=== PATIENT | female | born 2000 | race Caucasian/White ===

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

== ENCOUNTER 2018-09-04 21:29 | Emergency (ER) | payer OTHER ==
[2018-09-04] MEDS ORDERED: SODIUM CHLORIDE 1,000 ML IV STA (22:07)
--- NOTE | 2018-09-04 22:27 | PDOC ---
History of Present Illness - General Stated Complaint: UNCONSCIOUS Time Seen by Provider: 09/04/18 22:02 - History of Present Illness Initial Comments: 09/04/18 22:21 18 yo F with h/o Sandrine-en-Y, choleyctsectomy who p/w abdominal pain, vomiting, presyncope. Patient reports acute onset of 2-3 episodes of non bilious, non bloody emesis beginning this evening after leaving restaurant. Patient reports transient episode of lightheadedness, prior to arrival, while vomiting outside. + intermittent, RLQ sharp, abdominal beginning this evening. at bedside reports patient controlled herself to ground, with absent LOC, or head trauma following episode of emesis. This occurred twice. EMS reports patient noted to be hypotensive 74/40, tachycardic and hypoglycemic (undetectable BS) in route. Patient received Nml bowel habits, and in typical state of health today. Patient denies Palpitations, leg pain/swelling, Cough, wheezing, neck pain, STARK, F,C, CP, SOB, urinary complaints, BPR, hematuria, diarrhea, constipation, weakness, sensory changes. PMHx: as noted above ROS: as noted SHx: Denies IVDA. Allergies: NKDA Past History - Past Medical History Allergies/Adverse Reactions: Allergies Allergy/AdvReac Type Severity Reaction Status Date / Time No Known Allergies Allergy Verified 09/04/18 22:33 Home Medications: Ambulatory Orders Calcium Carbonate/Simethicone [Maalox Advanced Tab Chew] 1 each PO DAILY PRN #7 tab.chew 09/05/18 Famotidine [Pepcid -] 20 mg PO BID #14 tablet 09/05/18 Ondansetron [Zofran -] 4 mg PO BID #14 tablet 09/05/18 COPD: No DVT: No Dementia: No - Surgical History Abdominal Surgery: Yes (gastric ballon) Cholecystectomy: Yes - Immunization History Immunization Up to Date: Yes - Suicide/Smoking/Psychosocial Hx Smoking History: Never smoked Have you smoked in the past 12 months: No Hx Alcohol Use: No Drug/Substance Use Hx: No Substance Use Type: None Review of Systems - Review of Systems Comments:: 09/04/18 22:27 GENERAL/CONSTITUTIONAL: No fever or chills. No weakness. HEAD, EYES, EARS, NOSE AND THROAT: No change in vision. No ear pain or discharge. No sore throat. CARDIOVASCULAR: No chest pain or shortness of breath RESPIRATORY: No cough, wheezing, or hemoptysis. GASTROINTESTINAL: + nausea, vomiting, abdominal pain. Absent diarrhea or constipation. GENITOURINARY: No dysuria, frequency, or change in urination. MUSCULOSKELETAL: No joint or muscle swelling or pain. No neck or back pain. SKIN: No rash NEUROLOGIC: No headache, vertigo, loss of consciousness, or change in strength/ sensation. ENDOCRINE: No increased thirst. No abnormal weight change HEMATOLOGIC/LYMPHATIC: No anemia, easy bleeding, or history of blood clots. ALLERGIC/IMMUNOLOGIC: No hives or skin allergy. *Physical Exam - Physical Exam Comments: 09/04/18 22:27 GENERAL: Awake, alert, and fully oriented, in no acute distress HEAD: No signs of trauma, normocephalic, atraumatic EYES: PERRLA, EOMI, sclera anicteric, conjunctiva clear ENT: Auricles normal inspection, hearing grossly normal, nares patent, oropharynx clear without exudates. Moist mucosa NECK: Normal ROM, supple, no lymphadenopathy, JVD, or masses LUNGS: No distress, speaks full sentences, clear to auscultation bilaterally HEART: Regular rate and rhythm, normal S1 and S2, no murmurs, rubs or gallops, peripheral pulses normal and equal bilaterally. ABDOMEN: Soft, nontender, normoactive bowel sounds. No guarding, no rebound. No masses EXTREMITIES : Normal inspection, Normal range of motion, no edema. No clubbing or cyanosis. NEUROLOGICAL: Cranial nerves II through XII grossly intact. Normal speech, normal gait, no focal sensorimotor deficits SKIN: Warm, Dry, normal turgor, no rashes or lesions noted ED Treatment Course - LABORATORY CBC & Chemistry Diagram: 09/04/18 22:45 09/04/18 22:45 Medical Decision Making - Medical Decision Making 09/04/18 22:27 18 yo F with h/o Sandrine-en-Y, choleyctsectomy who p/w abdominal pain, vomiting, presyncope. HR 121, BP 104/57, vitals otherwise wnl, AF, a&Ox3. Physical exam unremarkable. R/o obx. Will consider gastroenteritis. colitis, pancreatitis, biliary dz., esophagitis. Assess for cardiac dysarrythmia, hypoglycemia, electrolyte abnml, metabolic and toxic derangements, acid-base disturbances, infection. Ed Course: Pepcid, NS CBC, CMP, LIPASE, HCG CT AP PO/IV CON 09/04/18 23:39 WBC: 13.9 HCG: Neg 09/05/18 01:11 CT AP: Unremarkable Patient tolerating PO intake. abdominal pain improved Stable for d/c with return precautions. Advised to f/u with PMD. 09/05/18 01:12 09/05/18 01:30 Maloox, Pepcid, Zofran sent to pharmacy. *DC/Admit/Observation/Transfer Diagnosis at time of Disposition: Abdominal pain with vomiting - Prescriptions Prescriptions: Calcium Carbonate/Simethicone [Maalox Advanced Tab Chew] 1 each PO DAILY PRN #7 tab.chew PRN Reason: Pain Famotidine [Pepcid -] 20 mg PO BID #14 tablet Ondansetron [Zofran -] 4 mg PO BID #14 tablet - Referrals Referrals: Serena Gutierrez MD [Primary Care Provider] - - Patient Instructions Printed Discharge Instructions: DI for Syncope in Adults (Fainting) Additional Instructions: Please return to the emergency department with any new or worsening symptoms or concerns. Please follow up with your primary care physician within 72 hours. - Post Discharge Activity - Transfer to Acute Care Facility Transfer comment: 09/04/18 22:43 I attest to the information provided in this note. - Attestations Physician Attestion: 09/05/18 01:12 I attest to the information provided in this note.
[2018-09-04 22:34] VITALS: TEMP 98.6; BMI 22.3
[2018-09-04] MEDS ORDERED: FAMOTIDINE 20 MG/50 ML IVPB 20 MG/50 ML MG IVPB ONE ×2 (22:38→23:00)
[2018-09-04 23:08] LABS: BASO % 0.1 % (0-2.0); EOS % 0.3 % (0-4.5); HEMATOCRIT 34.1 % (32.4-45.2); HEMOGLOBIN 11.8 GM/dL (10.7-15.3); MCH 28.9 pg (25.7-33.7); MCHC 34.7 g/dl (32.0-36.0); MEAN CELL VOLUME 83.3 fl (80-96); MEAN PLT VOLUME 7.6 fl (7.5-11.1); NEUT % 76.6 % (42.8-82.8); PLATELET COUNT 275 K/MM3 (134-434); RDW 12.4 % (11.6-15.6); WHITE BLOOD COUNT 13.9 K/mm3 (4.0-10.0)
--- NOTE | 2018-09-04 23:10 | PDOC ---
Attending Attestation - Resident Resident Name: Naveen Mendoza - ED Attending Attestation I have performed the following: I have examined & evaluated the patient, The case was reviewed & discussed with the resident, I agree w/resident's findings & plan, Exceptions are as noted - Medical Decision Making 09/04/18 23:09 18yoF hx of gastric bypass and cholecystectomy presents w/ sudden onset of severe abd pain and vomiting during dinner tonight, abd soft w/ mild epig ttp, no guarding, no rebound. - labs - CTAP w/ IV and PO contrast - IVF, sxs control - UPT - dispo per results.
[2018-09-04 23:49] LABS: ALBUMIN 3.4 g/dl (3.4-5.0); ALK PHOS 112 U/L (45-117); ANION GAP 7 MMOL/L (8-16); BILIRUBIN,TOTAL 0.5 mg/dL (0.2-1); BLOOD UREA NITROGEN 12 mg/dL (7-18); CALCIUM 8.1 mg/dL (8.5-10.1); CHLORIDE 109 mmol/L (98-107); CO2 24 mmol/L (21-32); CREATININE 0.3 mg/dL (0.55-1.3); GLUCOSE,RANDOM 67 mg/dL (74-106); LIPASE 197 U/L (73-393); POTASSIUM 3.7 mmol/L (3.5-5.1); SGOT/AST 25 U/L (15-37); SGPT/ALT 37 U/L (13-61); SODIUM 140 mmol/L (136-145); TOT PROT 6.5 g/dl (6.4-8.2)
[2018-09-05 01:07] LABS: URINE APPEARANCE CLEAR; URINE BILIRUBIN NEGATIVE (<2.0 mg/dL); URINE COLOR LTYELLOW; URINE GLUCOSE (UA) 3+ (NEGATIVE); URINE KETONE NEGATIVE (NEGATIVE); URINE LEUK ESTERASE NEGATIVE (NEGATIVE); URINE NITRITE NEGATIVE (NEGATIVE); URINE PROTEIN NEGATIVE (NEGATIVE); URINE UROBILINOGEN NEGATIVE mg/dL (0.2-1.0)
[2018-09-05 01:33] VITALS: BP 112/67; PULSE 89
== END 2018-09-05 01:34 | disposition home or self-care (01) ==
LOC: JER 21:29
PROC: 3E033GC Introduction of Other Therapeutic Substance into Peripheral Vein, Percutaneous Approach (ICD-10-PCS; principal; 2018-09-04)
PROC: 3E0337Z Introduction of Electrolytic and Water Balance Substance into Peripheral Vein, Percutaneous Approach (ICD-10-PCS; 2018-09-04)
DX: R10.9 Unspecified abdominal pain (principal); R11.10 Vomiting, unspecified; Z98.84 Bariatric surgery status
CPT/HCPCS: 36415; 74177-TC; 80053; 81003; 82947; 83690; 84703; 85025; 87086; 99283-25; J7030

== ENCOUNTER 2019-08-05 11:22 | Emergency (ER) | payer OTHER ==
[2019-08-05 11:51] VITALS: BMI 18.9
[2019-08-05] MEDS ORDERED: SODIUM CHLORIDE 1,000 ML IV STA ×2 (12:52→18:23)
[2019-08-05] MEDS ORDERED: FAMOTIDINE 20 MG/50 ML IVPB 20 MG/50 ML MG IVPB ONE ×2 (12:52→13:35)
[2019-08-05] MEDS ORDERED: LIDOCAINE VISCOUS 2% ORAL/TOP 20 ML UNIT-DOSE CUP MM ONE ×2 (12:52→19:12)
[2019-08-05] MEDS ORDERED: ONDANSETRON 4 MG/2 ML VIAL IVPUSH ONE (12:53)
--- NOTE | 2019-08-05 12:53 | PDOC ---
History of Present Illness - General Chief Complaint: Pain, Acute Stated Complaint: ABD/PAIN Time Seen by Provider: 08/05/19 11:59 History Source: Patient Exam Limitations: No Limitations Past History - Travel Traveled outside of the country in the last 30 days: No Close contact w/someone who was outside of country & ill: No - Past Medical History Allergies/Adverse Reactions: Allergies Allergy/AdvReac Type Severity Reaction Status Date / Time No Known Allergies Allergy Verified 08/05/19 11:46 Home Medications: Ambulatory Orders Calcitriol [Rocaltrol -] 0.5 mcg PO BID 08/05/19 Calcium Carbonate - 650 mg PO TID 08/05/19 Cholecalciferol (Vitamin D3) [Vitamin D3 -] 4,000 unit PO DAILY 08/05/19 Dexlansoprazole [Dexilant] 60 mg PO ASDIR 08/05/19 Escitalopram Oxalate [Lexapro -] 5 mg PO DAILY 08/05/19 Levothyroxine Sodium [Levo-T] 75 mcg PO DAILY 08/05/19 Metoclopramide HCl 1 tab PO AC 08/05/19 Sennosides [Senna] 1 tab PO HS 08/05/19 Simethicone [Mi-Acid] 1 tab PO ASDIR 08/05/19 COPD: No DVT: No Dementia: No Psychiatric Problems: Yes (depression) Other medical history: thryroid storm 07/22 26 days admission [facility] - Surgical History Abdominal Surgery: Yes (gastric ballon) Cholecystectomy: Yes - Immunization History Immunization Up to Date: Yes - Psycho Social/Smoking Cessation Hx Smoking History: Never smoked Have you smoked in the past 12 months: No Hx Alcohol Use: No Drug/Substance Use Hx: No Substance Use Type: None Review of Systems - Review of Systems Able to Perform ROS?: Yes Comments:: 08/05/19 18:27 CONSTITUTIONAL: Absent: fever, chills, diaphoresis, generalized weakness, malaise, loss of appetite HEENT: Absent: rhinorrhea, nasal congestion, throat pain, throat swelling, difficulty swallowing, mouth swelling, ear pain, eye pain, visual Changes CARDIOVASCULAR: Absent: chest pain, loss of consciousness, palpitations, irregular heart rate, peripheral edema RESPIRATORY: Absent: cough, shortness of breath, dyspnea with exertion, orthopnea, wheezing, stridor, hemoptysis GASTROINTESTINAL: Present: Abdominal pain. Absent: abdominal distension, nausea, vomiting, diarrhea, constipation, melena, hematochezia GENITOURINARY: Absent: dysuria, frequency, urgency, hesitancy, hematuria, flank pain, genital pain MUSCULOSKELETAL: Absent: myalgia, arthralgia, joint swelling SKIN: Absent: rash, itching, pallor HEMATOLOGIC/IMMUNOLOGIC: Absent: easy bleeding, easy bruising, lymphadenopathy, frequent infections ENDOCRINE: Absent: unexplained weight gain, unexplained weight loss, heat intolerance, cold intolerance NEUROLOGIC: Absent: headache, focal weakness or paresthesias, dizziness, unsteady gait, seizure, mental status changes, bladder or bowel incontinence PSYCHIATRIC: Absent: anxiety, depression, suicidal or homicidal ideation, hallucinations. Is the patient limited Norwegian proficient: No *Physical Exam - Vital Signs Last Vital Signs Temp Pulse Resp BP Pulse Ox 98 F 105 H 20 105/67 99 08/05/19 11:49 08/05/19 11:49 08/05/19 11:49 08/05/19 11:49 08/05/19 11:49 - Physical Exam 08/05/19 18:27 GENERAL: Well developed, well nourished. Awake and alert. No acute distress. HEENT: Normocephalic, atraumatic. PERRLA, EOMI. No conjunctival pallor. Sclera are non- icteric. Moist mucous membranes. Oropharynx is clear. NECK: Supple. Full ROM. No JVD. Carotid pulses 2+ and symmetric, without bruits. No thyromegaly. No lymphadenopathy. CARDIOVASCULAR: Regular rate and rhythm. No murmurs, rubs, or gallops. Distal pulses are 2+ and symmetric. PULMONARY: No evidence of respiratory distress. Lungs clear to auscultation bilaterally. No wheezing, rales or rhonchi. ABDOMINAL: Tenderness palpation of the epigastric region. Also tenderness the left upper quadrant. Soft. Non-distended. No rebound or guarding. No organomegaly. Normoactive bowel sounds. MUSCULOSKELETAL Normal range of motion at all joints. No bony deformities or tenderness. No CVA tenderness. EXTREMITIES: No cyanosis. No clubbing. No edema. No calf tenderness. SKIN: Warm and dry. Normal capillary refill. No rashes. No jaundice. NEUROLOGICAL: Alert, awake, appropriate. Cranial nerves 2-12 intact. No deficits to light touch and temperature in face, upper extremities and lower extremities. No motor deficits in the in face, upper extremities and lower extremities. Normoreflexic in the upper and lower extremities. Normal speech. Toes are down- going bilaterally. Gait is normal without ataxia. PSYCHIATRIC: Cooperative. Good eye contact. Appropriate mood and affect. ED Treatment Course - LABORATORY CBC & Chemistry Diagram: 08/05/19 13:47 08/05/19 13:47 Medical Decision Making - Medical Decision Making 08/05/19 18:27 Patient is a 19-year-old female with past medical history of hyperthyroidism status post thyroidectomy, gastric sleeve, cholecystectomy, presents to the ER today for epigastric pain. She states that she was just released from [facility] yesterday after having her thyroidectomy status post thyroid storm. She states that while she was in the hospital she did have associated epigastric pain for which they treated as reflux. She states that the medications given have helped only mildly and she has severe pain when eating. She has been unable to eat today. She went to her GI doctor today for evaluation and they told her to go to the ER. Denies fevers, chills, nausea, vomiting, urinary symptoms, constipation, lightheadedness and dizziness. A/P: Epigastric pain On exam patient tender to palpation over the epigastric left upper quadrant region. Labs ordered including lipase and amylase. All labs are within normal limits. H&H stable no leukocytosis. Given patient status post gastric sleeve, CT and ultrasound ordered. Ultrasound shows no acute pathology. Currently pending CT results. Suspect other GI source as cause for her pain including ulcer, H. pylori, hiatal hernia. Patient states that she understands her turbine mechanic needs to perform an endoscopy, however, she states that she is unable to have one until she is a month post op from her thyroidectomy. Pepcid IV, viscous lidocaine given with relief of symptoms. CTAP shows no acute pathology; essentially normal study DC home with GI follow up and strict return precautions. All results were discussed with the patient and she feels comfortable with discharge planning. All questions were answered. No scripts sent as patient's GI doctor sent medications related to her complaint to her pharmacy. Discharge - Discharge Information Problems reviewed: Yes Clinical Impression/Diagnosis: Abdominal pain Qualifiers: Abdominal location: unspecified location Qualified Code(s): R10.9 - Unspecified abdominal pain Gastritis Qualifiers: Gastritis type: unspecified gastritis Chronicity: acute Gastritis bleeding: without bleeding Qualified Code(s): K29.00 - Acute gastritis without bleeding Condition: Stable Disposition: HOME - Admission No - Follow up/Referral Referrals: Serena Gutierrez MD [Primary Care Provider] - - Patient Discharge Instructions Patient Printed Discharge Instructions: DI for Gastritis Additional Instructions: Your evaluated for your abdominal pain today. Your CT scan and abdominal ultrasounds were normal. I suspect your pain is due to gastritis or reflux. Please take the prescriptions at were prescribed to you by your GI doctor. They are at the [facility] on [address]. Please follow-up with your turbine mechanic tomorrow. Return to the ER for any new or worsening symptoms including fever, vomiting, diarrhea. - Post Discharge Activity Work/Back to School Note: Back to Work
[2019-08-05 13:19] LABS: PH,URINE 6.5 (5.0-8.0); URINE APPEARANCE CLEAR; URINE BILIRUBIN NEGATIVE (NEGATIVE); URINE COLOR DK YELLOW; URINE GLUCOSE (UA) NEGATIVE (NEGATIVE); URINE KETONE TRACE (NEGATIVE); URINE LEUK ESTERASE NEGATIVE (NEGATIVE); URINE NITRITE NEGATIVE (NEGATIVE); URINE PROTEIN TRACE (NEGATIVE); URINE UROBILINOGEN 0.2 mg/dL (0.2-1.0)
[2019-08-05] MEDS ORDERED: ONDANSETRON 4 MG/2 ML VIAL ONE (13:35)
[2019-08-05] MEDS ORDERED: LIDOCAINE VISCOUS 2% ORAL/TOP 20 ML UNIT-DOSE CUP ONE ×2 (13:35→19:23)
[2019-08-05 14:01] LABS: BASO % 0.1 % (0-2.0); EOS % 1.1 % (0-4.5); HEMATOCRIT 36.4 % (32.4-45.2); HEMOGLOBIN 12.1 GM/dL (10.7-15.3); LYMPH % 32.6 % (8-40); MCH 27.3 pg (25.7-33.7); MCHC 33.1 g/dl (32.0-36.0); MEAN CELL VOLUME 82.4 fl (80-96); MEAN PLT VOLUME 6.6 fl (7.5-11.1); NEUT % 58.2 % (42.8-82.8); PLATELET COUNT 265 K/MM3 (134-434); RBC 4.42 M/mm3 (3.60-5.2); RDW 13.4 % (11.6-15.6); WHITE BLOOD COUNT 10.2 K/mm3 (4.0-10.0)
[2019-08-05 14:34] LABS: BILIRUBIN,TOTAL 0.5 mg/dL (0.2-1); BLOOD UREA NITROGEN 27.6 mg/dL (7-18); CALCIUM 9.6 mg/dL (8.5-10.1); CREATININE 0.6 mg/dL (0.55-1.3); POTASSIUM 4.2 mmol/L (3.5-5.1); TOT PROT 7.7 g/dl (6.4-8.2)
[2019-08-05 18:32] VITALS: BP 110/72; PULSE 86; TEMP 97.9
== END 2019-08-05 19:33 | disposition home or self-care (01) ==
LOC: JER 11:22
PROC: 3E0337Z Introduction of Electrolytic and Water Balance Substance into Peripheral Vein, Percutaneous Approach (ICD-10-PCS; principal; 2019-08-05)
PROC: 3E033GC Introduction of Other Therapeutic Substance into Peripheral Vein, Percutaneous Approach (ICD-10-PCS; 2019-08-05)
DX: K29.00 Acute gastritis without bleeding (principal); R10.9 Unspecified abdominal pain; E07.9 Disorder of thyroid, unspecified; F32.9 Major depressive disorder, single episode, unspecified; Z98.84 Bariatric surgery status
CPT/HCPCS: 36415; 74177-TC; 76705-TC; 80053; 81003; 82150; 83690; 84703; 85025; 96361; 96365; 96375; 99283-25; J7030; Q9967

== ENCOUNTER 2019-09-17 16:49 | Emergency (ER) | payer OTHER ==
[2019-09-17] MEDS ORDERED: SODIUM CHLORIDE 1,000 ML IV STA (17:03)
--- NOTE | 2019-09-17 17:16 | PDOC ---
History of Present Illness - General Chief Complaint: Syncope/Near Syncope Stated Complaint: DIZZY Time Seen by Provider: 09/17/19 17:02 History Source: Patient Exam Limitations: No Limitations - History of Present Illness Initial Comments: Laura Rajput is a 19 yo F w a hx of hypothyroidism, rocío-en Y, and vasovagal syncopal events presents to the [facility] er [facility] after she experienced a syncopal episode 1 hour GRIP. The patient was at a clinic with her child when she started feeling nauseous, hearing faint and distal voices in her ears, her vision became blurry, then she passed out for around 30 seconds. She was sitting down when this occurred, did not fall down and hit her head or experience any trauma to another part of her body, and returned to baseline right away without a post-ictal period. EMS state that the patient feels well and has been at her baseline since they have seen her. Here in the ED she has no complaints and states she is all better. She states she use to pass out much more frequently before she had her thyroid removed. Patient states she ate food today but did not drink much fluids as she only drank coffee this morning and she might be dehydrated. LMP: July - patient states she has nova ring for control. She is sexually active with her and does not use condoms PCP: emmett Lyons PSH: Thyroidectomy, cholecystectomy, , anal fissure surgery, Gastric surgery Social Hx: Drinks wine occassionally did not drink today. Denies smoking or other substance usage Allergies: NKA, NKDA Past History - Past Medical History Allergies/Adverse Reactions: Allergies Allergy/AdvReac Type Severity Reaction Status Date / Time No Known Allergies Allergy Verified 08/05/19 11:46 Home Medications: Ambulatory Orders Calcitriol [Rocaltrol -] 0.5 mcg PO BID 08/05/19 Calcium Carbonate - 650 mg PO TID 08/05/19 Cholecalciferol (Vitamin D3) [Vitamin D3 -] 4,000 unit PO DAILY 08/05/19 Dexlansoprazole [Dexilant] 60 mg PO ASDIR 08/05/19 Escitalopram Oxalate [Lexapro -] 5 mg PO DAILY 08/05/19 Levothyroxine Sodium [Levo-T] 75 mcg PO DAILY 08/05/19 Metoclopramide HCl 1 tab PO AC 08/05/19 Sennosides [Senna] 1 tab PO HS 08/05/19 Simethicone [Mi-Acid] 1 tab PO ASDIR 08/05/19 COPD: No DVT: No Dementia: No Psychiatric Problems: Yes (depression) - Surgical History Abdominal Surgery: Yes (gastric ballon) Cholecystectomy: Yes - Immunization History Immunization Up to Date: Yes - Psycho Social/Smoking Cessation Hx Smoking History: Never smoked Have you smoked in the past 12 months: No Hx Alcohol Use: No Drug/Substance Use Hx: No Substance Use Type: None Review of Systems - Review of Systems Able to Perform ROS?: Yes Comments:: CONSTITUTIONAL: Absent: fever, no chills, no fatigue EYES: Present: Visual changes ENT: Absent: ear pain, no sore throat CARDIOVASCULAR: Present: Syncope Absent: chest pain, no palpitations RESPIRATORY: Absent: cough, no SOB GI: Absent: abdominal pain, no nausea, no vomiting, no constipation, no diarrhea GENITOURINARY: Absent: dysuria, no frequency, no hematuria MUSKULOSKELETAL: Absent: back pain, no arthralgia, no myalgia SKIN: Absent: rash NEURO: Absent: headache *Physical Exam - Physical Exam GENERAL: Patient looks pale. Well-nourished. No apparent distress. HEENT: Normocephalic, atraumatic. PERRL, EOM intact. CARDIOVASCULAR: Normal S1, S2. Regular rate and rhythm. PULMONARY: No evidence of respiratory distress. Lungs clear to auscultation bilaterally. No wheezing, rales or rhonchi. ABDOMEN: Soft, non-distended, non-tender. EXTREMITIES: Normal ROM in all four extremities. No gross deformities. SKIN: Warm, dry. No rash NEUROLOGICAL: No focal neurological deficits. ED Treatment Course - LABORATORY CBC & Chemistry Diagram: 09/17/19 17:00 09/17/19 17:00 - RADIOLOGY Radiology Studies Ordered: Category Date Time Status CHEST PA & LAT [RAD] Stat Radiology 09/17/19 17:03 Ordered Medical Decision Making - Medical Decision Making Laura Rajput is a 19 yo F w a hx of hypothyroidism and vasovagal syncopal events presents to the [facility] er [facility] after she experienced a syncopal episode 1 hour GRIP. The patient was at a clinic with her child when she started feeling nauseous, hearing faint and distal voices in her ears, her vision became blurry, then she passed out for around 30 seconds. She was sitting down when this occurred, did not fall down and hit her head or experience any trauma to another part of her body, and returned to baseline right away without a post- ictal period. EMS state that the patient feels well and has been at her baseline since they have seen her. Here in the ED she has no complaints and states she is all better. She states she use to pass out much more frequently before she had her thyroid removed. Patient states she ate food today but did not drink much fluids as she only drank coffee this morning and she might be dehydrated. LMP: July - patient states she has nova ring for control. She is sexually active with her and does not use condoms Vital Signs Temp Pulse Resp BP Pulse Ox 98.1 F 90 19 92/63 100 09/17/19 17:17 09/17/19 17:17 09/17/19 17:17 09/17/19 17:17 09/17/19 17:17 DDx IBNLT: Syncope more likely than seizure, vasovagal, dehydration, ACS/ cardiac origin, , PE, electrolyte/metabolic disturbance Plan: Labs, urine, EKG, CXR, IV hydration, re-assess. Labs: Unremarkable Urine: No signs of infection, hcg negative EKG: NS rate 74, narrow complexes, normal axis, no hypertrophy, no ST elevations or depressions, TWI in V2, QTc 432, Possible delta wave in lead 2,3, aVF, no evidence of HOCM, brugada or long QT CXR: Unremarkable Re-assessment: Patient feels well and persistently asymptomatic in ER Disposition: Home [facility] cardio and PCP FU Discharge - Discharge Information Problems reviewed: Yes Clinical Impression/Diagnosis: Syncope Qualifiers: Syncope type: unspecified Qualified Code(s): R55 - Syncope and collapse Condition: Improved Disposition: HOME - Admission No - Follow up/Referral Referrals: Doc Murillo MD [Staff Physician] - - Patient Discharge Instructions Patient Printed Discharge Instructions: DI for Syncope in Adults (Fainting) Additional Instructions: You came into the ER after a syncopal episode. You were asymptomatic in the ER and your labs, EKG, and chest x-ray were all normal. We are giving you the number of a oracle database analyst to follow up with and schedule an appointment as you will need what is called a holter monitor. Please call up the oracle database analyst we are referring you to and schedule an appointment in the next 3 to 5 days. Come back to the ER immediately if you feel lightheaded, nauseous, start vomiting, have chest pain, or have any other new or worsening concerns. Thank you for coming to the [facility] ER. We hope you feel better soon! Print Language: SOUTH SUDANESE - Post Discharge Activity
[2019-09-17 17:19] VITALS: BMI 22.4
[2019-09-17 18:11] LABS: BASO % 0.5 % (0-2.0); EOS % 0.7 % (0-4.5); HEMATOCRIT 32.8 % (32.4-45.2); HEMOGLOBIN 10.7 GM/dL (10.7-15.3); MCH 26.2 pg (25.7-33.7); MCHC 32.5 g/dl (32.0-36.0); MEAN CELL VOLUME 80.5 fl (80-96); MEAN PLT VOLUME 7.9 fl (7.5-11.1); MONO % 6.6 % (3.8-10.2); NEUT % 47.2 % (42.8-82.8); PLATELET COUNT 358 K/MM3 (134-434); RBC 4.07 M/mm3 (3.60-5.2); RDW 14.7 % (11.6-15.6); WHITE BLOOD COUNT 7.9 K/mm3 (4.0-10.0)
[2019-09-17 18:14] LABS: URINE APPEARANCE CLOUDY; URINE BILIRUBIN NEGATIVE (NEGATIVE); URINE COLOR YELLOW; URINE GLUCOSE (UA) NEGATIVE (NEGATIVE); URINE KETONE NEGATIVE (NEGATIVE); URINE LEUK ESTERASE NEGATIVE (NEGATIVE); URINE NITRITE NEGATIVE (NEGATIVE); URINE PROTEIN NEGATIVE (NEGATIVE)
[2019-09-17 18:19] VITALS: TEMP 97.8
[2019-09-17 18:24] LABS: PROTHROMBIN TIME (PATIENT) 11.8 SEC (9.7-13.0)
[2019-09-17 18:27] LABS: ACTIVATED PTT 29.7 SECONDS (25.2-36.5)
[2019-09-17 18:49] LABS: ALBUMIN 4.3 g/dl (3.4-5.0); ALK PHOS 163 U/L (45-117); ANION GAP 7 MMOL/L (8-16); BILIRUBIN,TOTAL 0.2 mg/dL (0.2-1); BLOOD UREA NITROGEN 15.5 mg/dL (7-18); CALCIUM 9.3 mg/dL (8.5-10.1); CHLORIDE 106 mmol/L (98-107); CO2 25 mmol/L (21-32); CREATININE 0.6 mg/dL (0.55-1.3); GLUCOSE,RANDOM 75 mg/dL (74-106); MAGNESIUM 2.4 mg/dL (1.8-2.4); POTASSIUM 4.1 mmol/L (3.5-5.1); SGOT/AST 19 U/L (15-37); SGPT/ALT 15 U/L (13-61); SODIUM 138 mmol/L (136-145); TOT PROT 7.6 g/dl (6.4-8.2)
--- NOTE | 2019-09-17 19:20 | PDOC ---
Attending Attestation - Resident Resident Name: Manan Lee - ED Attending Attestation I have performed the following: I have examined & evaluated the patient, The case was reviewed & discussed with the resident, I agree w/resident's findings & plan - HPI HPI: 09/17/19 19:35 see resident hpi - Physicial Exam PE: 09/17/19 19:35 agree with resident exam - Medical Decision Making 09/17/19 19:35 19-year-old female with history of vasovagal episodes with witnessed syncopal episode while in clinic with her child Patient has been asymptomatic Labs are within normal limits She is status post recent thyroidectomy secondary to thyroid storm requiring ICU visit Patient did see cardiology while she was in the hospital but did not receive follow-up instructions Plan to DC with recommended cardiology follow-up for further evaluation
[2019-09-17 20:34] VITALS: BP 96/63; PULSE 72
--- NOTE | 2019-09-18 11:56 | EKG ---
Test Reason : Blood Pressure : / mmHG Vent. Rate : 074 BPM Atrial Rate : 074 BPM P-R Int : 150 ms QRS Dur : 084 ms QT Int : 390 ms P-R-T Axes : 049 060 055 degrees QTc Int : 432 ms NORMAL SINUS RHYTHM WITH SINUS ARRHYTHMIA NORMAL ECG WHEN COMPARED WITH ECG OF 05-DEC-2016 11:35, SINUS RHYTHM HAS REPLACED JUNCTIONAL RHYTHM T WAVE INVERSION NO LONGER EVIDENT IN INFERIOR LEADS T WAVE INVERSION LESS EVIDENT IN ANTEROLATERAL LEADS QT HAS SHORTENED Confirmed by BRENDA COY MD ([id number]) on 09/18/2019 11:56:28 AM Referred By: Confirmed By:BRENDA COY MD
== END 2019-09-17 20:36 | disposition home or self-care (01) ==
LOC: JER 16:49
PROC: 3E0337Z Introduction of Electrolytic and Water Balance Substance into Peripheral Vein, Percutaneous Approach (ICD-10-PCS; principal; 2019-09-17)
DX: R55 Syncope and collapse (principal); E03.9 Hypothyroidism, unspecified
CPT/HCPCS: 36415; 71046-TC-FY; 80053; 81003; 83735; 84443; 84484; 84703; 85025; 85610; 85730; 87086; 93005; 93010; 99283-25; J7030